=== PATIENT | male | born 1995 | race African-American/Black ===

== ENCOUNTER 2020-07-15 10:30 | Outpatient (CLI) | payer SELFPAY ==
[2020-07-15 10:59] LABS: Amphetamine Not Detected (NotDetected); Barbiturates Screen Not Detected (NotDetected); Benzodiazepine Screen Not Detected (NotDetected); Cocaine Metabolite Screen Not Detected (NotDetected); Medtox Control Line Valid? VALID (VALID); Methadone Not Detected (NotDetected); Methamphetamine Not Detected (NotDetected); Opiate Screen Not Detected (NotDetected); Oxycodone Screen Not Detected (NotDetected); Phencyclidine (PCP) Not Detected (NotDetected); THC/Cannabinoid Screen Not Detected (NotDetected); Tricyclic Screen Not Detected (NotDetected)
== END 2020-07-15 10:31 | disposition home or self-care (01) ==
LOC: MADLAB 10:30
DX: Z51.81 Encounter for therapeutic drug level monitoring (principal); Z79.899 Other long term (current) drug therapy
CPT/HCPCS: 80306

== ENCOUNTER 2022-05-04 14:41 | Emergency (ER) | payer SELFPAY ==
[2022-05-04] MEDS ORDERED: Ibuprofen 800 MG TAB ONE (15:40)
== END 2022-05-04 16:26 | disposition home or self-care (01) ==
LOC: MADERS 14:41
DX: B34.9 Viral infection, unspecified (principal); Z87.891 Personal history of nicotine dependence
CPT/HCPCS: 87081; 87430; 87804; 99283

== ENCOUNTER 2022-05-29 21:23 | Emergency (ER) | payer SELFPAY ==
[2022-05-29] MEDS ORDERED: Dicyclomine 10 MG CAP ONE (22:13)
== END 2022-05-29 22:37 | disposition home or self-care (01) ==
LOC: MADERS 21:23
DX: R10.84 Generalized abdominal pain (principal); R19.7 Diarrhea, unspecified; Z87.891 Personal history of nicotine dependence
CPT/HCPCS: 99283

== ENCOUNTER 2022-06-17 22:21 | Emergency (ER) | payer SELFPAY ==
[2022-06-17] MEDS ORDERED: Ibuprofen 800 MG TAB ONE (22:53)
== END 2022-06-17 23:41 | disposition home or self-care (01) ==
LOC: MADERS 22:21
DX: J02.9 Acute pharyngitis, unspecified (principal); Z87.891 Personal history of nicotine dependence; Z20.822 Contact with and (suspected) exposure to COVID-19
CPT/HCPCS: 87081; 87430; 87804; 99283; U0003; U0005

== ENCOUNTER 2022-07-07 02:59 | Emergency (ER) | payer SELFPAY ==
[2022-07-07] MEDS ORDERED: Ondansetron ODT 4 MG TAB ONE (03:13)
== END 2022-07-07 03:28 | disposition home or self-care (01) ==
LOC: MADERS 02:59
DX: R11.2 Nausea with vomiting, unspecified (principal); R19.7 Diarrhea, unspecified; Z87.891 Personal history of nicotine dependence
CPT/HCPCS: 99283; Q0162

== ENCOUNTER 2022-08-28 09:28 | Emergency (ER) | payer SELFPAY | END 2022-08-28 11:37 | disposition home or self-care (01) | LOC: MADERS 09:28 | DX: J06.9 Acute upper respiratory infection, unspecified (principal); Z87.891 Personal history of nicotine dependence; Z20.822 Contact with and (suspected) exposure to COVID-19 | CPT/HCPCS: 87081; 87430; 87804; 99283; U0003; U0005 ==

== ENCOUNTER 2024-03-21 09:09 | Emergency (ER) | payer SELFPAY | END 2024-03-21 10:07 | disposition home or self-care (01) | LOC: MADERS 09:09 | DX: H65.91 Unspecified nonsuppurative otitis media, right ear (principal); H61.23 Impacted cerumen, bilateral; R03.0 Elevated blood-pressure reading, without diagnosis of hypertension; F17.290 Nicotine dependence, other tobacco product, uncomplicated | CPT/HCPCS: 99283 ==